=== PATIENT | female | born 1950 | race Caucasian/White ===

== ENCOUNTER 2022-06-28 16:25 | Inpatient (IN) | payer MEDICARE ==
[2022-06-28 19:54] VITALS: BMI 29.9
[2022-06-28] MEDS ORDERED: Bisacodyl 10 MG SUPP PR PRN (21:33)
[2022-06-28] MEDS ORDERED: Bisacodyl 5 MG TAB PO PRN (21:33)
[2022-06-28] MEDS ORDERED: traMADol HCl 50 MG TAB PO PRN (21:35)
[2022-06-28] MEDS ORDERED: Acetaminophen 325 MG TAB PO PRN (21:35)
[2022-06-28] MEDS ORDERED: Aluminum & Magnesium Hydroxide 60 ML, diphenhydrAMINE 150 MG, Lidocaine 2% Viscous Solu... SSW PRN (21:38)
[2022-06-28] MEDS ORDERED: cefTRIAXone\\ROCEPHIN 2 GM in Sodium Chloride 0.9% 100 ML IVPB SCH (22:00)
[2022-06-29] MEDS: Enoxaparin Sodium 40 MG/0.4 ML SYRINGE SC SCH (09:20)
[2022-06-29] MEDS: Fluconazole 100 MG TAB PO SCH (09:20)
[2022-06-29] MEDS: Atorvastatin Calcium 40 MG TAB PO SCH (09:20)
[2022-06-29] MEDS: Saccharomyces boulardii 250 MG CAP PO SCH (09:20)
[2022-06-29] MEDS: Senokot S 8.6-50 MG TAB PO SCH ×2 (09:21→21:43)
[2022-06-29] MEDS: Aspirin 81 mg Enteric Coated Tablet PO SCH (09:21)
[2022-06-29] MEDS: Carvedilol 25 MG TAB PO SCH ×2 (09:21→21:43)
[2022-06-29] MEDS: NIFEdipine XL 30 MG TAB PO SCH (15:14)
[2022-06-29] MEDS: Collagenase 250 UNITS/GM Ointment 30 GM TUBE TOP SCH (15:15)
[2022-06-29] MEDS ORDERED: Dextrose 5% in Water 1,000 ML IV PRN (15:39)
[2022-06-29] MEDS ORDERED: Dextrose 50% Abboject 50 ML SYRINGE SLOW IVP PRN (15:39)
[2022-06-29] MEDS ORDERED: HumaLOG 300 UNITS/3 ML VIAL SC PRN (15:39)
[2022-06-29] MEDS: HumaLOG 300 UNITS/3 ML VIAL SC PRN (17:10)
[2022-06-30 04:52] LABS: #Basophils 0.1 thou/uL (0.0-0.2); #Eosinphils 0.2 thou/uL (0.0-0.7); #Lymphocytes 1.2 thou/uL (1.20-3.40); #Neutrophils 6.6 thou/uL (1.40-6.50); %Basophils 1.6 % (0.0-1.0); %Eosinophils 2.7 % (0.0-10.0); %Lymphocytes 12.8 % (21.0-51.0); %Monocytes 10.4 % (0.0-10.0); %Neutrophils 72.5 % (42.0-75.0); Hemoglobin 7.3 g/dL (12.0-16.0); Mean Corpuscular Hemoglobin 29.3 pg (27.0-31.0); Mean Corpuscular Volume 86.1 fL (78.0-98.0); Mean Platelet Volume 6.6 fL (7.4-10.4); Platelet Count 320 thou/uL (130-400); RBC Distribution Width 12.7 % (11.5-14.5); Red Blood Cell (RBC) Count 2.48 mill/uL (4.20-5.40); White Blood Cell (WBC) Count 9.1 thou/uL (4.8-10.8)
[2022-06-30 05:08] LABS: ALT (SGPT) 20 U/L (8-55); AST (SGOT) 23 U/L (5-34); Albumin 2.2 g/dL (3.4-4.8); Alkaline Phosphatase 108 U/L (40-110); Anion Gap 13 mmol/L (10-20); BUN (Urea Nitrogen) 9 mg/dL (9.8-20.1); Bilirubin, Total 0.4 mg/dL (0.2-1.2); Calc. Creatinine Clearance 111 mL/min (70-130); Calcium 7.8 mg/dL (7.8-10.44); Carbon Dioxide 27 mmol/L (23-31); Chloride 101 mmol/L (98-107); Estimated GFR 99; Globulin 3.7 g/dL (2.4-3.5); Glucose 131 mg/dL (80-115); Potassium 3.9 mmol/L (3.5-5.1); Protein, Total 5.9 g/dL (5.8-8.1); Sodium 137 mmol/L (136-145)
[2022-06-30] MEDS: Enoxaparin Sodium 40 MG/0.4 ML SYRINGE SC SCH (09:20)
[2022-06-30] MEDS: NIFEdipine XL 30 MG TAB PO SCH (09:21)
[2022-06-30] MEDS: Carvedilol 25 MG TAB PO SCH (09:23)
[2022-06-30] MEDS: Fluconazole 100 MG TAB PO SCH (09:24)
[2022-06-30] MEDS: Senokot S 8.6-50 MG TAB PO SCH ×2 (09:24→22:22)
[2022-06-30] MEDS: Saccharomyces boulardii 250 MG CAP PO SCH (09:25)
[2022-06-30] MEDS: Ascorbic Acid 500 mg Chewable Tablet PO SCH (09:25)
[2022-06-30] MEDS: Ferrous Sulfate 325 MG TAB PO SCH ×2 (09:25→17:21)
[2022-06-30] MEDS: Acetaminophen 325 MG TAB PO PRN ×2 (09:26→17:21)
[2022-06-30] MEDS: Collagenase 250 UNITS/GM Ointment 30 GM TUBE TOP SCH (12:31)
[2022-06-30] MEDS: Atorvastatin Calcium 40 MG TAB PO SCH ×2 (12:31→22:23)
[2022-06-30] MEDS ORDERED: Polyethylene Glycol 3350 17 GM Packet PO SCH (12:45)
[2022-06-30] MEDS: HumaLOG 300 UNITS/3 ML VIAL SC PRN (17:21)
[2022-06-30] MEDS: Nystatin 500,000 UNITS/5 ML UDCUP SSW SCH ×3 (17:22→22:22)
[2022-06-30] MEDS: Carvedilol 6.25 MG TAB PO SCH (22:22)
[2022-07-01] MEDS: Ascorbic Acid 500 mg Chewable Tablet PO SCH (09:09)
[2022-07-01] MEDS: Ferrous Sulfate 325 MG TAB PO SCH ×2 (09:09→17:57)
[2022-07-01] MEDS: Fluconazole 100 MG TAB PO SCH (09:10)
[2022-07-01] MEDS: NIFEdipine XL 30 MG TAB PO SCH (09:10)
[2022-07-01] MEDS: Senokot S 8.6-50 MG TAB PO SCH ×2 (09:10→21:23)
[2022-07-01] MEDS: Enoxaparin Sodium 40 MG/0.4 ML SYRINGE SC SCH (09:11)
[2022-07-01] MEDS: Carvedilol 6.25 MG TAB PO SCH ×2 (09:11→21:19)
[2022-07-01] MEDS: Saccharomyces boulardii 250 MG CAP PO SCH (09:11)
[2022-07-01] MEDS: Collagenase 250 UNITS/GM Ointment 30 GM TUBE TOP SCH (09:12)
[2022-07-01] MEDS: Polyethylene Glycol 3350 17 GM Packet PO SCH (09:12)
[2022-07-01] MEDS: Nystatin 500,000 UNITS/5 ML UDCUP SSW SCH ×4 (09:12→21:23)
[2022-07-01] MEDS: Acetaminophen 325 MG TAB PO PRN ×3 (09:13→21:23)
[2022-07-01] MEDS: Atorvastatin Calcium 40 MG TAB PO SCH (21:19)
[2022-07-02] MEDS: NIFEdipine XL 30 MG TAB PO SCH (08:35)
[2022-07-02] MEDS: Carvedilol 6.25 MG TAB PO SCH ×2 (08:39→20:12)
[2022-07-02] MEDS: Fluconazole 100 MG TAB PO SCH (08:39)
[2022-07-02] MEDS: Saccharomyces boulardii 250 MG CAP PO SCH (08:39)
[2022-07-02] MEDS: Ascorbic Acid 500 mg Chewable Tablet PO SCH (08:39)
[2022-07-02] MEDS: Senokot S 8.6-50 MG TAB PO SCH ×2 (08:39→20:12)
[2022-07-02] MEDS: Polyethylene Glycol 3350 17 GM Packet PO SCH (08:40)
[2022-07-02] MEDS: Enoxaparin Sodium 40 MG/0.4 ML SYRINGE SC SCH (08:40)
[2022-07-02] MEDS: Ferrous Sulfate 325 MG TAB PO SCH ×2 (08:40→16:59)
[2022-07-02] MEDS: Acetaminophen 325 MG TAB PO PRN ×2 (08:56→20:12)
[2022-07-02] MEDS: Nystatin 500,000 UNITS/5 ML UDCUP SSW SCH ×4 (09:29→20:20)
[2022-07-02] MEDS: Collagenase 250 UNITS/GM Ointment 30 GM TUBE TOP SCH (12:29)
[2022-07-02] MEDS: HumaLOG 300 UNITS/3 ML VIAL SC PRN ×3 (12:30→20:14)
[2022-07-02] MEDS: Atorvastatin Calcium 40 MG TAB PO SCH (20:11)
[2022-07-03 08:03] LABS: #Basophils 0.1 thou/uL (0.0-0.2); #Eosinphils 0.3 thou/uL (0.0-0.7); Hemoglobin 7.3 g/dL (12.0-16.0); Mean Platelet Volume 6.2 fL (7.4-10.4); Red Blood Cell (RBC) Count 2.53 mill/uL (4.20-5.40)
[2022-07-03 08:10] LABS: %Basophils 0.9 % (0.0-1.0); %Eosinophils 2.4 % (0.0-10.0); %Lymphocytes 7.2 % (21.0-51.0); %Monocytes 6.9 % (0.0-10.0); %Neutrophils 82.7 % (42.0-75.0); Mean Corpuscular HGB CONC 33.3 g/dL (32.0-36.0); Mean Corpuscular Hemoglobin 28.8 pg (27.0-31.0); Mean Corpuscular Volume 86.3 fL (78.0-98.0); Platelet Count 415 thou/uL (130-400); RBC Distribution Width 13.2 % (11.5-14.5); White Blood Cell (WBC) Count 14.5 thou/uL (4.8-10.8)
[2022-07-03] MEDS: Nystatin 500,000 UNITS/5 ML UDCUP SSW SCH ×4 (08:49→20:34)
[2022-07-03] MEDS: NIFEdipine XL 30 MG TAB PO SCH (08:49)
[2022-07-03] MEDS: Saccharomyces boulardii 250 MG CAP PO SCH (08:52)
[2022-07-03] MEDS: Senokot S 8.6-50 MG TAB PO SCH ×2 (08:52→20:36)
[2022-07-03] MEDS: Carvedilol 6.25 MG TAB PO SCH ×2 (08:52→20:34)
[2022-07-03] MEDS: Ferrous Sulfate 325 MG TAB PO SCH ×2 (08:52→17:06)
[2022-07-03] MEDS: Ascorbic Acid 500 mg Chewable Tablet PO SCH (08:53)
[2022-07-03] MEDS: Enoxaparin Sodium 40 MG/0.4 ML SYRINGE SC SCH (08:55)
[2022-07-03] MEDS: Polyethylene Glycol 3350 17 GM Packet PO SCH (08:56)
[2022-07-03] MEDS: Nystatin Powder 15 GM BOT TOP SCH ×2 (08:57→20:36)
[2022-07-03] MEDS: Fluconazole 100 MG TAB PO SCH (09:02)
[2022-07-03] MEDS: BIOTENE TOP SCH ×2 (10:47→10:49)
[2022-07-03] MEDS: Collagenase 250 UNITS/GM Ointment 30 GM TUBE TOP SCH (11:06)
[2022-07-03] MEDS: HumaLOG 300 UNITS/3 ML VIAL SC PRN ×2 (12:28→17:07)
[2022-07-03] MEDS ORDERED: traMADol HCl 50 MG TAB PO PRN (15:21)
[2022-07-03] MEDS: Atorvastatin Calcium 40 MG TAB PO SCH (20:34)
[2022-07-03] MEDS: Acetaminophen 325 MG TAB PO PRN (23:58)
[2022-07-04] MEDS: Saccharomyces boulardii 250 MG CAP PO SCH (09:23)
[2022-07-04] MEDS: Enoxaparin Sodium 40 MG/0.4 ML SYRINGE SC SCH (09:23)
[2022-07-04] MEDS: Nystatin 500,000 UNITS/5 ML UDCUP SSW SCH ×4 (09:24→20:51)
[2022-07-04] MEDS: Fluconazole 100 MG TAB PO SCH (09:24)
[2022-07-04] MEDS: Carvedilol 6.25 MG TAB PO SCH ×2 (09:24→20:51)
[2022-07-04] MEDS: Ferrous Sulfate 325 MG TAB PO SCH ×2 (09:24→17:32)
[2022-07-04] MEDS: Ascorbic Acid 500 mg Chewable Tablet PO SCH (09:25)
[2022-07-04] MEDS: NIFEdipine XL 30 MG TAB PO SCH (09:25)
[2022-07-04] MEDS: Senokot S 8.6-50 MG TAB PO SCH ×2 (09:26→20:51)
[2022-07-04] MEDS: Acetaminophen 325 MG TAB PO PRN ×2 (09:29→17:54)
[2022-07-04] MEDS: Polyethylene Glycol 3350 17 GM Packet PO SCH (09:34)
[2022-07-04] MEDS: Collagenase 250 UNITS/GM Ointment 30 GM TUBE TOP SCH (09:49)
[2022-07-04] MEDS: HumaLOG 300 UNITS/3 ML VIAL SC PRN ×2 (12:03→17:31)
[2022-07-04] MEDS: Nystatin Powder 15 GM BOT TOP SCH ×2 (13:42→20:55)
[2022-07-04] MEDS: Cephalexin 250 MG CAP PO SCH ×2 (14:52→20:51)
[2022-07-04] MEDS: Atorvastatin Calcium 40 MG TAB PO SCH (20:51)
[2022-07-05] MEDS ORDERED: Cholecalciferol 1,000 UNITS (25 MCG) TAB PO SCH (09:00)
[2022-07-05] MEDS: Carvedilol 6.25 MG TAB PO SCH ×2 (09:12→20:39)
[2022-07-05] MEDS: Nystatin 500,000 UNITS/5 ML UDCUP SSW SCH ×4 (09:12→20:39)
[2022-07-05] MEDS: Ferrous Sulfate 325 MG TAB PO SCH ×2 (09:13→17:00)
[2022-07-05] MEDS: Cephalexin 250 MG CAP PO SCH ×3 (09:13→20:39)
[2022-07-05] MEDS: Ascorbic Acid 500 mg Chewable Tablet PO SCH (09:13)
[2022-07-05] MEDS: Saccharomyces boulardii 250 MG CAP PO SCH (09:14)
[2022-07-05] MEDS: Senokot S 8.6-50 MG TAB PO SCH ×2 (09:14→20:39)
[2022-07-05] MEDS: NIFEdipine XL 30 MG TAB PO SCH (09:14)
[2022-07-05] MEDS: Fluconazole 100 MG TAB PO SCH (09:14)
[2022-07-05] MEDS: Polyethylene Glycol 3350 17 GM Packet PO SCH (09:16)
[2022-07-05] MEDS: Enoxaparin Sodium 40 MG/0.4 ML SYRINGE SC SCH (09:16)
[2022-07-05] MEDS: Nystatin Powder 15 GM BOT TOP SCH ×2 (09:17→20:40)
[2022-07-05] MEDS: Cholecalciferol (Vitamin D3) 5,000 UNITS CAPSULE PO SCH (12:00)
[2022-07-05] MEDS: Acetaminophen 325 MG TAB PO PRN (13:56)
[2022-07-05] MEDS: Silver Sulfadiazine 1% Cream 20 GM TUBE TOP SCH (15:00)
[2022-07-05] MEDS: HumaLOG 300 UNITS/3 ML VIAL SC PRN (17:02)
[2022-07-05] MEDS: Atorvastatin Calcium 40 MG TAB PO SCH (20:39)
[2022-07-06] MEDS: Acetaminophen 325 MG TAB PO PRN ×2 (03:23→15:07)
[2022-07-06] MEDS: Ferrous Sulfate 325 MG TAB PO SCH ×2 (09:21→18:36)
[2022-07-06] MEDS: NIFEdipine XL 30 MG TAB PO SCH (09:21)
[2022-07-06] MEDS: Senokot S 8.6-50 MG TAB PO SCH ×2 (09:22→20:45)
[2022-07-06] MEDS: Carvedilol 6.25 MG TAB PO SCH ×2 (09:22→20:45)
[2022-07-06] MEDS: Saccharomyces boulardii 250 MG CAP PO SCH (09:22)
[2022-07-06] MEDS: Cephalexin 250 MG CAP PO SCH ×3 (09:23→20:45)
[2022-07-06] MEDS: Aspirin 81 mg Enteric Coated Tablet PO SCH (09:23)
[2022-07-06] MEDS: Polyethylene Glycol 3350 17 GM Packet PO SCH (09:23)
[2022-07-06] MEDS: Ascorbic Acid 500 mg Chewable Tablet PO SCH (09:23)
[2022-07-06] MEDS: Cholecalciferol (Vitamin D3) 5,000 UNITS CAPSULE PO SCH (09:23)
[2022-07-06] MEDS: Fluconazole 100 MG TAB PO SCH (09:23)
[2022-07-06] MEDS: Enoxaparin Sodium 40 MG/0.4 ML SYRINGE SC SCH (09:23)
[2022-07-06] MEDS: Nystatin 500,000 UNITS/5 ML UDCUP SSW SCH ×4 (09:23→20:45)
[2022-07-06] MEDS: Nystatin Powder 15 GM BOT TOP SCH ×2 (09:24→20:46)
[2022-07-06] MEDS: Silver Sulfadiazine 1% Cream 20 GM TUBE TOP SCH (15:09)
[2022-07-06] MEDS ORDERED: LIDOCAINE 2% SSP PRN (20:08)
[2022-07-06] MEDS ORDERED: [UNRECOGNIZED DRUG - OTHER] SSP PRN (20:08)
[2022-07-06] MEDS ORDERED: VISCOUS SSP PRN (20:08)
[2022-07-06] MEDS ORDERED: MAG HYDROX SSP PRN (20:08)
[2022-07-06] MEDS ORDERED: AL HYDROX SSP PRN (20:08)
[2022-07-06] MEDS ORDERED: SIMETH SSP PRN (20:08)
[2022-07-06] MEDS: Atorvastatin Calcium 40 MG TAB PO SCH (20:45)
[2022-07-07 05:14] LABS: #Basophils 0.1 thou/uL (0.0-0.2); #Eosinphils 0.1 thou/uL (0.0-0.7); #Lymphocytes 1.1 thou/uL (1.20-3.40); #Monocytes 0.9 thou/uL (0.11-0.59); #Neutrophils 7.7 thou/uL (1.40-6.50); %Basophils 1.2 % (0.0-1.0); %Eosinophils 1.2 % (0.0-10.0); %Neutrophils 77.6 % (42.0-75.0); Hemoglobin 7.1 g/dL (12.0-16.0); Mean Corpuscular HGB CONC 32.3 g/dL (32.0-36.0); Mean Corpuscular Hemoglobin 28.2 pg (27.0-31.0); Mean Corpuscular Volume 87.2 fL (78.0-98.0); Mean Platelet Volume 5.4 fL (7.4-10.4); Platelet Count 411 thou/uL (130-400); RBC Distribution Width 13.8 % (11.5-14.5); Red Blood Cell (RBC) Count 2.54 mill/uL (4.20-5.40); White Blood Cell (WBC) Count 9.9 thou/uL (4.8-10.8)
[2022-07-07 05:27] LABS: ALT (SGPT) 17 U/L (8-55); AST (SGOT) 12 U/L (5-34); Albumin 2.2 g/dL (3.4-4.8); Alkaline Phosphatase 101 U/L (40-110); Anion Gap 12 mmol/L (10-20); BUN (Urea Nitrogen) 8 mg/dL (9.8-20.1); Bilirubin, Total 0.4 mg/dL (0.2-1.2); Calc. Creatinine Clearance 116 mL/min (70-130); Calcium 7.7 mg/dL (7.8-10.44); Carbon Dioxide 26 mmol/L (23-31); Chloride 103 mmol/L (98-107); Estimated GFR 100; Globulin 3.4 g/dL (2.4-3.5); Glucose 131 mg/dL (80-115); Potassium 3.8 mmol/L (3.5-5.1); Protein, Total 5.6 g/dL (5.8-8.1); Sodium 137 mmol/L (136-145)
[2022-07-07 05:38] VITALS: TEMP 99
[2022-07-07] MEDS: Nystatin 500,000 UNITS/5 ML UDCUP SSW SCH ×3 (09:35→19:43)
[2022-07-07] MEDS: Enoxaparin Sodium 40 MG/0.4 ML SYRINGE SC SCH (09:35)
[2022-07-07] MEDS: Cholecalciferol (Vitamin D3) 5,000 UNITS CAPSULE PO SCH (09:36)
[2022-07-07] MEDS: Carvedilol 6.25 MG TAB PO SCH (09:36)
[2022-07-07] MEDS: Aspirin 81 mg Enteric Coated Tablet PO SCH (09:37)
[2022-07-07] MEDS: Senokot S 8.6-50 MG TAB PO SCH (09:37)
[2022-07-07] MEDS: Cephalexin 250 MG CAP PO SCH ×2 (09:37→14:44)
[2022-07-07] MEDS: Ferrous Sulfate 325 MG TAB PO SCH ×2 (09:37→19:42)
[2022-07-07] MEDS: Ascorbic Acid 500 mg Chewable Tablet PO SCH (09:37)
[2022-07-07] MEDS: Fluconazole 100 MG TAB PO SCH (09:37)
[2022-07-07] MEDS: Saccharomyces boulardii 250 MG CAP PO SCH (09:37)
[2022-07-07] MEDS: NIFEdipine XL 30 MG TAB PO SCH (09:38)
[2022-07-07] MEDS: Nystatin Powder 15 GM BOT TOP SCH (09:39)
[2022-07-07] MEDS: Polyethylene Glycol 3350 17 GM Packet PO SCH (09:39)
[2022-07-07 09:40] VITALS: BP 134/65
[2022-07-07] MEDS: Acetaminophen 325 MG TAB PO PRN (12:35)
[2022-07-07] MEDS ORDERED: Ondansetron ODT 4 MG TAB PO PRN (14:22)
[2022-07-07] MEDS: Silver Sulfadiazine 1% Cream 20 GM TUBE TOP SCH (19:42)
== END 2022-07-07 16:00 | disposition short-term general hospital (02) | DRG 300 ==
LOC: BURMED 19:17
PROVIDERS: ADMIT Family Medicine; ATTEND Family Medicine
DX: E11.52 Type 2 diabetes mellitus with diabetic peripheral angiopathy with gangrene (principal); L03.116 Cellulitis of left lower limb; R53.1 Weakness; I10 Essential (primary) hypertension; E78.5 Hyperlipidemia, unspecified; I25.10 Atherosclerotic heart disease of native coronary artery without angina pectoris; E78.00 Pure hypercholesterolemia, unspecified; D64.9 Anemia, unspecified; Z95.1 Presence of aortocoronary bypass graft; Z91.040 Latex allergy status; Z79.82 Long term (current) use of aspirin; Z79.899 Other long term (current) drug therapy
CPT/HCPCS: 36415; 36416; 80053; 85025; 87811; 97602; J1650; J1815; J7620

== ENCOUNTER 2022-07-07 15:49 | Emergency (ER) | payer MEDICARE ==
[2022-07-07] MEDS ORDERED: Piperacillin/Tazobactam 4.5 GM VIAL ONE (19:15)
[2022-07-07] MEDS ORDERED: Sodium Chloride 0.9% 100 ML ONE (19:15)
== END 2022-07-07 19:30 | disposition short-term general hospital (02) ==
LOC: BURERS 15:49
DX: M72.6 Necrotizing fasciitis (principal); I10 Essential (primary) hypertension; E11.9 Type 2 diabetes mellitus without complications; E78.00 Pure hypercholesterolemia, unspecified
CPT/HCPCS: 96374; J2543; J3490